=== PATIENT | male | born 1965 | race Caucasian/White ===

== ENCOUNTER 2016-06-30 18:42 | Emergency (ER) | payer SELFPAY ==
[~2016-06-30] VITALS: Ht 188 cm; Wt 89.8 kg
--- NOTE | 2016-06-30 18:54 | NUR ---
PT REC'D TO ER C/O ANXIETY FOR 3 DAYS . TODAY WAS THE WORST. FAMILUY AT BEDSIDE AWAITING EVALUATION BY ER PROVIDER.
[2016-06-30] MEDS ORDERED: CHLORDIAZEPOXIDE HCL 25 MG CAPSULE PO ONE (19:00)
[2016-06-30] MEDS ORDERED: CHLORDIAZEPOXIDE HCL 25 MG CAPSULE ONE (19:10)
--- NOTE | 2016-06-30 19:20 | NUR ---
Received patient in bed aaox4, reporting being "anxious, unable to sleep well for 3 days." VSS. Breathing even and unlabored. Comfort measures rendered. Safety measures observed.
--- NOTE | 2016-06-30 20:16 | NUR ---
Patient verbalized, "I feel better." Patient discharged to home in stable condition. Written and verbal after care instructions given. Patient verbalizes understanding of instruction. Patient is ambulatory with steady gait. Instructed not to drive.
[2016-06-30 20:17] VITALS: BP 142/68
== END 2016-06-30 20:18 | disposition home or self-care (01) ==
LOC: ER 18:43
DX: F17.210 Nicotine dependence, cigarettes, uncomplicated (principal); G47.00 Insomnia, unspecified; F10.129 Alcohol abuse with intoxication, unspecified
CPT/HCPCS: 99284; A4606; Z7610

== ENCOUNTER 2019-09-17 10:26 | Emergency (ER) | payer SELFPAY ==
[~2019-09-17] VITALS: Ht 182.9 cm; Wt 83.9 kg
--- NOTE | 2019-09-17 10:30 | NUR ---
PT BIBRA FROM HOME C/O CHEST PAIN AND ETOH, PT IS AAOX4, NOT IN RESPIRATORY DISTRESS, HOOKED TO SQL MANAGER, KEPT RESTED AND COMFORTABLE, WILL CONTINUE TO MONITOR.
--- NOTE | 2019-09-17 10:35 | NUR ---
SEEN AND EXAMINED BY .
--- NOTE | 2019-09-17 10:40 | NUR ---
IV LINE ESTABLISHED BLOOD DRAWN AND SENT TO LAB.
[2019-09-17 10:47] LABS: BASOPHILS # (AUTO) 0.1 /CMM (0.0-0.2); BASOPHILS % (AUTO) 1.4 % (0.0-2.0); EOSINOPHILS % (AUTO) 0.5 % (0.0-6.0); HEMATOCRIT 46 % (39-51); HEMOGLOBIN 15.8 g/dL (13.5-17.5); LYMPHOCYTES # (AUTO) 1.7 /CMM (0.8-4.8); LYMPHOCYTES % (AUTO) 28.4 % (20.0-44.0); MEAN CORPUSCULAR HGB CONC 34 g/dl (31.0-36.0); MEAN CORPUSCULAR VOLUME 96 fL (80-96); MONOCYTES # (AUTO) 0.2 /CMM (0.1-1.30); MONOCYTES % (AUTO) 3.8 % (2.0-12.0); NEUTROPHILS # (AUTO) 3.9 /CMM (1.8-8.9); NEUTROPHILS % (AUTO) 65.9 % (43.0-81.0); PLATELET COUNT (AUTO) 209 /CMM (150-450); WHITE BLOOD COUNT (AUTO) 5.9 K/uL (4.3-11.0)
[2019-09-17 10:54] LABS: CALCIUM, SERUM 8.7 mg/dL (8.5-10.1); CARBON DIOXIDE 29 mmol/L (21-32); CHLORIDE 96 mmol/L (98-107); CREATININE 1.2 mg/dL (0.6-1.3); GLUCOSE 110 mg/dL (74-106); POTASSIUM 3.9 mmol/L (3.5-5.1); SODIUM SERUM 136 mmol/L (136-145); UREA NITROGEN, BLOOD 17 mg/dL (7-18)
[2019-09-17 10:59] LABS: ALANINE AMINOTRANSFERASE 45 U/L (12-78); ALBUMIN 4.1 g/dL (3.4-5.0); ALKALINE PHOSPHATASE 160 U/L (46-116); ASPARTATE AMINOTRANSFERASE 47 U/L (15-37); BILIRUBIN,DIRECT 0.1 mg/dL (0.0-0.2); BILIRUBIN,TOTAL 0.5 mg/dL (0.2-1.0); TOTAL PROTEIN, SERUM 7.5 g/dL (6.4-8.2)
[2019-09-17] MEDS: IV NS 0.9% 1,000 ML BAG IV ONE (11:00)
--- NOTE | 2019-09-17 11:25 | NUR ---
IV removed. Catheter intact and site benign. Pressure and 4x4 applied to site. No bleeding noted.
--- NOTE | 2019-09-17 11:29 | NUR ---
PT REFUSING TO BE DISCHARGED AND BECOMES AGGRESSIVE TOWARDS STAFF. AWARE.
[2019-09-17 11:32] VITALS: BP 125/91
== END 2019-09-17 11:32 | disposition home or self-care (01) ==
LOC: ER 10:37
DX: R07.89 Other chest pain (principal); F41.9 Anxiety disorder, unspecified
CPT/HCPCS: 36415; 71045; 80048; 80076; 84484; 85025; 93005 ×2; 99285; J7030